=== PATIENT | male | born 1995 | race Caucasian/White ===

== ENCOUNTER 2016-10-09 11:36 | Inpatient (IN) | payer MEDICAID ==
[~2016-10-09] VITALS: Ht 175.3 cm; Wt 80.3 kg
--- NOTE | 2016-10-09 11:47 | NUR ---
PT SENT TO LOBBY TO WAIT FOR AVAILABLE BED AT THIS TIME. ALERT AND ORIENTED WITHOUT S/S DISTRESS NOTED
--- NOTE | 2016-10-09 13:36 | NUR ---
PT IS A 21 YEAR OLD MALE, PRESENTS TO ED WITH C/O PERIRECTAL ABSCESS. PT WAS SEEND HERE 3 DAYS AGO AND WAS SENT HOME WITH ANTIBIOTICS, AND PAIN MEDICATION. PT REPORTS DOES NOT FEEL ANY BETTER. INFORMED BY DR TO COME BACK IF NOT ANY BETTER. PT DENIES ANY N/V/D/C. PT DENIES ANTY FEVERS. PT AWIAITING MSE.
[2016-10-09] MEDS ORDERED: AUG500 PO (13:43)
[2016-10-09] MEDS ORDERED: TRAMADOL HCL50 MG PO (13:43)
[2016-10-09] MEDS ORDERED: COLACE100 MG PO (13:44)
--- NOTE | 2016-10-09 14:18 | NUR ---
[facility] SWAB COLLECTED AND SENT TO LAB
[2016-10-09 14:29] LABS: BASOPHIL % 0.2 % (0-2); PLATELET COUNT 241 x10^3mcL (130-400); RED CELL DISTRIBUTION WIDTH 12.4 % (11.5-14.5)
[2016-10-09 14:41] LABS: CALCIUM 9.6 mg/dL (8.5-10.1); CARBON DIOXIDE 31.3 mmol/L (21-32); CHLORIDE SERUM 101 mmol/L (98-107); CREATININE SERUM 0.9 mg/dL (0.7-1.3); GFR1 > 60 mL/min; GLUCOSE SERUM 87 mg/dL (74-106); SODIUM SERUM 138 mmol/L (136-145)
[2016-10-09 14:44] LABS: ALBUMIN 4.3 g/dL (3.4-5.0); ALKALINE PHOSPHATASE 119 U/L (46-116); ALT/SGPT 19 U/L (16-63); AST/SGOT 14 U/L (15-37); BILIRUBIN TOTAL 0.8 mg/dL (0.20-1.00)
[2016-10-09 14:45] LABS: TOTAL PROTEIN, SERUM 8.7 g/dL (6.4-8.2)
--- NOTE | 2016-10-09 14:56 | NUR ---
MEDICAL STUDENTS AT BEDSIDE.
--- NOTE | 2016-10-09 15:16 | NUR ---
PT AMBULATED TO RESTROOM WITH STEADY GAIT TO PROVIDE URINE SAMPLE
[2016-10-09 15:29] LABS: microscopic required? YES; urine erythrocyte NEGATIVE (NEGATIVE)
--- NOTE | 2016-10-09 15:31 | NUR ---
REPORT CALLED TO CHETAN RN, SHE WILL ASSUME CARE PRIMARY RN POST TRANSFER. INFORMED CHETAN THAT PT NEEDS TO FINISH REMAINING 1.5L NS BOLUS UPSTAIRS.
[2016-10-09 15:36] LABS: AMPHETAMINE QUAL UR NONE DETECTED (NEG <=1000)
--- NOTE | 2016-10-09 15:37 | NUR ---
Received patient from ER via [facility], patient ambulatory. A/O x 4. Denies pain at this time. IV to RAC with NS bolus infusing and Unasyn infusing. Oriented patient to room and call light. Resource RN at bedside do admission.
[2016-10-09 15:51] VITALS: BP 111/73
[2016-10-09 16:03] LABS: T3 TOTAL 1.01 ng/mL
[2016-10-09 16:05] LABS: CHOLESTEROL/HDL RATIO 4.1; MAGNESIUM 1.9 mg/dL (1.8-2.4); PHOSPHOROUS 4.1 mg/dL (2.5-4.9)
[2016-10-09 16:16] LABS: FREE T4 1.46 ng/dL (0.76-1.46); FREE THYROXINE INDEX 3.3 ug/dL (1.4-4.5); T4(THYROXINE) 9.6 ug/dL (4.7-13.3)
--- NOTE | 2016-10-09 16:20 | NUR ---
Patient resting in bed no distress noted, Morphine 2mg ivp given for 6/10 pain to rectal area. Bolus completed, NS @ 100ml/hr started. IV patent. needs anticipated.
[2016-10-09 17:20] VITALS: BP 121/71
--- NOTE | 2016-10-09 17:20 | NUR ---
PATIENT RESTING IN BED NO DISTRESS NOTED, DR PRICE IN ROOM TO EXAM PATIENT PERIANAL ABSCESS, GEOPHYSICAL OPERATOR BY ME. DOCTOR SHELDON THE AREA WITH SKIN SHELDON PEN. PATIENT TOLERATED WELL. REPEAT BP 121/71, MAP 88 AFTER 1 HOUR OF 3 LITER BOLUS. DUE MEDS GIVEN. CLEOCIN 600MG IVPB STARTED. CONT TO MONITOR.
--- NOTE | 2016-10-09 17:33 | NUR ---
TECH AT BEDSIDE WILL PERFORM US SOFT TISSUE ORDERED.
--- NOTE | 2016-10-09 19:10 | NUR ---
PATIENT RECEIVED AWAKE, ALERT, AND ORIENTED X 4. NO DISTRESS NOTED. PATIENT C/O 4/10 PERIRECTAL AREA, TOLERABLE AT THIS TIME. IV SITE TO RIGHT AC, PATENT AND INTACT. IV FLUID INFUSING PER DOCTORS' ORDER. BED IN LOWEST POSITION. CALL LIGHT WITHIN REACH. WILL CONTINUE TO MONITOR.
[2016-10-09 22:01] VITALS: BP 109/57
--- NOTE | 2016-10-10 05:01 | NUR ---
PATIENT RESTED THROUGHOUT THE NIGHT. NO DISTRESS NOTED. NO C/O PAIN THROUGHOUT THE NIGHT. SAFETY AND COMFORT MEASURES MAINTAINED. BED IN LOWEST POSITION. CALL LIGHT WITHIN REACH. WILL CONTINUE TO MONITOR AND ENDORSE TO NEXT SHIFT NURSE.
[2016-10-10 05:40] VITALS: BP 105/59
[2016-10-10 06:11] LABS: BASOPHIL % 0.4 % (0-2); PLATELET COUNT 216 x10^3mcL (130-400); RED CELL DISTRIBUTION WIDTH 12.6 % (11.5-14.5)
--- NOTE | 2016-10-10 08:00 | NUR ---
PER DR. PRICE KEEP PATIENT NPO X MEDS, POSS SURGERY. PATIENT ALREADY EAT HIS BREAKFAST; INFORM PATIENT NOT TO EAT OR DRINK PER DOCTOR ORDER. PATIENT VERBALIZE UNDERSTAND.
--- NOTE | 2016-10-10 09:08 | NUR ---
PATIENT BACK FROM BATHROOM PER PATIENT JUST HAS BM, NO COMPLAINT. DUE MEDS GIVEN. REFUSED COLACE. NEEDS ANTICIPATED. CONT TO MONITOR.
--- NOTE | 2016-10-10 09:28 | NUR ---
PATIENT RESTING IN BED DENIES PAIN, DR HSIEH AND MEDICAL TEAM ROUND DISCUSS POC AND CONSULT W/ DR. VARELA FOR POSS SURGERY; INFORM PATIENT KEEP NPO UNTIL SINCE BY SURGEON. PER PATIENT NO FURTHER QUESTIONS AT THIS TIME.
--- NOTE | 2016-10-10 09:51 | NUR ---
Dr. Garcia seen patient at this time, perform exam of perianal abscess; patient experience mild pain during exam; per Dr. Garcia will do incision and drainage tomorrow.
[2016-10-10 09:57] VITALS: BP 124/64
--- NOTE | 2016-10-10 12:06 | NUR ---
NEW ORDER FROM DR. MATA, REGULAR DIET AND NPO AFTER MN FOR SURGERY TOMORROW DUE MEDS GIVEN. CLEOCIN 600MG IVPB GIVEN. PATIENT WAS INFORM OF PLAN. NEEDS ANTICIPATED.
[2016-10-10 13:17] VITALS: BP 107/61
--- NOTE | 2016-10-10 13:57 | NUR ---
PATIENT AWAKE/ALERT NO COMPLAINTS. PATIENT SEEN BY DR. VARELA AND WAS AWARE OF INCISION AND DRAINAGE OF PERIANAL ABSCESS; PATIENT AGREE WITH SURGERY; CONSENT OBTAIN AT THIS TIME NO FURTHER QUESTION.
--- NOTE | 2016-10-10 14:50 | NUR ---
PATIENT ASLEEP NO DISTRESS NOTED, REPLACE NEW BAG IVF AND INFUSING AT 20ML/HR.
[2016-10-10 17:28] VITALS: BP 112/66
--- NOTE | 2016-10-10 18:00 | NUR ---
PATIENT SAT IN BED NO COMPLAINTS, DUE MEDS GIVEN. CLEOCIN 600MG IVPB GIVEN. CONT TO MONITOR.
--- NOTE | 2016-10-10 19:05 | NUR ---
PATIENT RECEIVED AWAKE, ALERT, AND ORIENTED X4. NO DISTRESS NOTED. PATIENT DENIES PAIN AT THIS TIME. IV SITE TO RIGHT AC, PATENT AND INTACT. IV FLUID INFUSING PER DOCTOR'S ORDER. BED IN LOWEST POSITION. CALL LIGHT WITHIN REACH. WILL CONTINUE TO MONITOR.
[2016-10-10 22:35] VITALS: BP 114/45
--- NOTE | 2016-10-11 05:12 | NUR ---
PATIENT RESTED THROUGHOUT THE NIGHT. NO DISTRESS NOTED. NO C/O PAIN. ALL NEEDS MET. SAFETY AND COMFORT MEASURES MAINTAINED. BED IN LOWEST POSITION. CALL LIGHT WITHIN REACH. WILL CONTINUE TO MONITOR AND ENDORSE TO NEXT SHIFT NURSE.
[2016-10-11 05:39] VITALS: BP 95/49
[2016-10-11 06:18] LABS: BASOPHIL % 0.4 % (0-2); PLATELET COUNT 261 x10^3mcL (130-400); RED CELL DISTRIBUTION WIDTH 12.7 % (11.5-14.5)
[2016-10-11 07:57] LABS: CALCIUM 9.1 mg/dL (8.5-10.1); CARBON DIOXIDE 27.4 mmol/L (21-32); CHLORIDE SERUM 104 mmol/L (98-107); CREATININE SERUM 0.8 mg/dL (0.7-1.3); GFR1 > 60 mL/min; GLUCOSE SERUM 92 mg/dL (74-106); POTASSIUM SERUM 4.1 mmol/L (3.5-5.1); SODIUM SERUM 142 mmol/L (136-145)
--- NOTE | 2016-10-11 08:00 | NUR ---
RECEIVED PATIENT A/A/OX3. TELE#4=SR; HR = 75. NO RESP DISTRESS ON RA. NPO FOR SURGERY TODAY. IVF TKO. IV SITE TO RFA INTACT. AMBULATORY. PERIANAL SKIN NO OPENED WOUND SEEN. DENIED PAINNOW. CALL LIGHT IN REACH.
--- NOTE | 2016-10-11 09:30 | NUR ---
DR. HSIEH AND MEDICAL TEAM MADE MORNING ROUND. PLAN OF CARE DISCUSSED WITH PATIENT, INCLUDED WITH SX FOR PERIANAL ABSCESS TODAY. PATIENT AGREED WITH PLAN OF CARE.
--- NOTE | 2016-10-11 09:34 | NUR ---
WENT TO OR NOW.
[2016-10-11 10:45] VITALS: BP 121/84
--- NOTE | 2016-10-11 11:44 | NUR ---
RECEIVED PATIENT FROM OR RECOVERY ROOM. ALERT/ORIENTED X3. V/S = [id number] -119/66; O2 SAT 98% ON RA. DRSG TO RECTAL AREA DRY AND INTACT. DENIED PAIN NOW. MOTHER AT BED SIDE.
[2016-10-11 11:46] VITALS: BP 119/66
[2016-10-11 15:06] VITALS: BP 102/62
[2016-10-11 18:12] VITALS: BP 122/71
--- NOTE | 2016-10-11 18:42 | NUR ---
CONDITION STABLE. TOLERATED REGULAR DIET WELL. VOID POST-OP. STATED INCISIONAL PAIN ON TOLERATED LEVEL. REFUSED PAIN MEDS NOW. ENDORSED CARE TO [facility] NURSE.
--- NOTE | 2016-10-11 19:50 | NUR ---
PT IS AAOX4. FRIEND AT BEDSIDE. PT IS MED/SURG. PULSES ARE PRESENT, NO EDEMA NOTED. THERE IS A DRESSING IN HIS CLAUDIA-RECTAL REGION, POST I&D. THE DRESSING HAS LIGHT, DRIED BLOOD. PT HAS AN IV IN THE RAC THAT IS CURRENTLY SET AT 20 ML/HR NS. THE BED IS IN THE LOWEST POSITION AND THE CALL LIGHT IS WITHIN REACH. WILL CONTINUE TO MONITOR.
[2016-10-11 22:12] VITALS: BP 118/68
--- NOTE | 2016-10-12 02:17 | NUR ---
PT IS RESTING COMFORTABLY WITH EVEN, UNLABORED BREATHING. CALL LIGHT WITHIN REACH. WILL CONTINUE TO MONITOR.
[2016-10-12 05:32] VITALS: BP 109/46
--- NOTE | 2016-10-12 06:17 | NUR ---
PT IS RESTING IN BED. ALL NEEDS HAVE BEEN MET THROUGHOUT THE NIGHT. BED IS IN THE LOWEST POSITION AND 2X RAILS ARE IN PLACE. THE CALL LIGHT IS WITHIN REACH, WILL ENDORSE TO MORNING SHIFT.
--- NOTE | 2016-10-12 08:00 | NUR ---
A/A/OX4; DENIED CHEST PAIN. NO RESP DISTRESS ON RA. TOLERATED REGULAR DIET BREAKFAST. INCISION TO PERIANAL ABSCESS SITE COVERED WITH DRSG INTACT. SMALL DRIED OOZING NOTED. STATED INCISIONAL PAIN 02/28. REFUSED PAIN MEDS. IVF OF NS TKO. IV SITE TO RAC INTACT. ENCOURAGE TO AMBULATE TOLERATED. CALL LIGHT IN REACH.
--- NOTE | 2016-10-12 09:30 | NUR ---
DR. IBARRA AND MEDICAL TEAM MADE MORNING ROUND. PLAN OF CARE DISCUSSED WITH PATIENT, INCLUDED WITH DISCHARGE TO HOME TODAY. PATIENT AGREED WITH PLAN OF CARE.
[2016-10-12 10:22] VITALS: BP 110/72
[2016-10-12] MEDS ORDERED: LAC PO (11:49)
[2016-10-12] MEDS ORDERED: TYL325 PO (11:58)
[2016-10-12 13:23] VITALS: BP 110/72
--- NOTE | 2016-10-12 13:30 | NUR ---
TEACHING OF SITZ BATH GIVEN.
--- NOTE | 2016-10-12 13:55 | NUR ---
D/C TO HOME PER ORDER. INSTRUCTION GIVEN. INCISION TO PERIANAL SMALL. DRSG INTACT. DENIED PAIN NOW. PHOTOS OF PERIANAL SITE ( PRE-OP AND POST- OP) TAKEN YESTERDAY AND FILED. CONDITION STABLE. AMBULATORY.
== END 2016-10-12 15:03 | disposition home or self-care (01) | DRG 226 ==
LOC: ED 11:36 → DU 13:55 → MU 13:55 → DU 15:39 → MU 10-11 17:56
PROVIDERS: Emergency Medicine; Family Medicine; Surgery; ADMIT Family Medicine
PROC: 0D9Q0ZZ Drainage of Anus, Open Approach (ICD-10-PCS; principal; 2016-10-11 09:30)
DX: K61.0 Anal abscess (principal); N17.0 Acute kidney failure with tubular necrosis; E78.5 Hyperlipidemia, unspecified; Z68.26 Body mass index [BMI] 26.0-26.9, adult; Z87.891 Personal history of nicotine dependence
CPT/HCPCS: 83880; 84439; 94150; J0295; J1170; J2001; J2175; J2250; J2270; J2405; J2704; J3010; J3490; J7030; J7040; J7120; Q0092